=== PATIENT | female | born 1965 | race Hispanic/Latino ===

== ENCOUNTER 2017-04-20 09:35 | Outpatient (CLI) | payer OTHER ==
--- NOTE | 2017-04-20 10:40 | XRay Report ---
AP AND LATERAL LUMBOSACRAL SPINE: History: Back pain Normal bone mineralization. There is moderate disc space narrowing with anterior spurring near the thoracolumbar junction. There is moderate to severe hypertrophic facet arthropathy at L3-4, L4-5 and L5-S1. Grade one anterolisthesis of L4 with respect to L5 measures 3-4 mm. No evidence for fracture or bone lesion. IMPRESSION: Lumbar spondylosis as described.
--- NOTE | 2017-04-20 10:41 | XRay Report ---
BILATERAL KNEES, 2 VIEWS History: Bilateral knee pain. Findings: Normal bone mineralization. Moderate osteoarthritic changes are identified in the medial compartments and patellofemoral spaces of both knees. No fracture, bone lesion or osteochondral defect is identified. Small bilateral joint effusions. Impression: Osteoarthritis. Small knee effusions. No acute process noted.
== END 2017-04-20 09:36 | disposition home or self-care (01) ==
LOC: XRAY 09:35
PROVIDERS: ATTEND Internal Medicine
DX: M17.0 Bilateral primary osteoarthritis of knee (principal); M47.896 Other spondylosis, lumbar region; M25.461 Effusion, right knee; M25.462 Effusion, left knee; M12.88 Other specific arthropathies, not elsewhere classified, other specified site; G56.00 Carpal tunnel syndrome, unspecified upper limb; J45.909 Unspecified asthma, uncomplicated; G62.9 Polyneuropathy, unspecified; J44.9 Chronic obstructive pulmonary disease, unspecified
CPT/HCPCS: 72100

== ENCOUNTER 2017-09-27 20:31 | Emergency (ER) | payer MEDICAID, OTHER ==
[2017-09-27] MEDS ORDERED: DUONEB *Not for PRN Use IH ONE (21:21)
[2017-09-28] MEDS ORDERED: DUONEB *Not for PRN Use IH ONE (03:40)
[2017-09-28] MEDS ORDERED: DELTASONE PO ONE (03:40)
--- NOTE | 2017-09-28 03:40 | Emergency Department Report ---
ED Asthma HPI - General Chief Complaint: Adult Asthma Stated Complaint: RANDY Time Seen by Provider: 09/28/17 03:26 Source: patient Mode of arrival: Ambulatory Limitations: No Limitations - History of Present Illness Initial Comments: Patient reports that she is out of her asthma inhaler and she is having cough, worse this slightly thin. She says she needs a refill. Denies any nausea or vomiting. Denies any fever or chills. Denies any chest pain or shortness of breath. Pain is 0-10. No medication taken prior to coming to the emergency room because she said she is out of her inhaler. She says she started with runny nose and nasal congestion about a week ago and it turned into asthma. MD Complaint: "asthma attack", wheezing Onset/Timin -: week(s) Asthma History: adult onset, history of prior ED visit Context: recent URI, ran out of meds Associated Symptoms: dry cough, other (hoarseness). denies: productive cough, fever, chest pain, hemoptysis, leg edema, syncope Treatments Prior to Arrival: other (none) - Related Data Current Asthma Therapy: inhaled bronchodilator Home Medications Medication Instructions Recorded Confirmed Last Taken Fluticasone Propionate [Flovent 1 puff IH BID 04/30/13 04/30/13 04/30/13 Diskus] Meloxicam [Mobic] 15 mg PO QDAY 04/30/13 05/01/13 04/30/13 08:00 Previous Rx's Medication Instructions Recorded Last Taken Type Albuterol *Only Ed* [Proventil 2.5 mg IH Q3H PRN #60 nebu 05/03/13 Unknown Rx 0.5% NEBS] Ipratropium/Albuterol Sulfate 1 ampul IH Q6HRT #60 ampul.neb 05/03/13 Unknown Rx [DUONEB *Not for PRN Use*] oxyCODONE /ACETAMINOPHEN [Percocet 1 tab PO Q6H PRN #30 tablet 05/03/13 Unknown Rx 5/325 mg] ALBUTEROL Inhaler [ProAir HFA 2 puff INHALATION Q6H PRN #1 inha 09/28/17 Unknown Rx Inhaler] ALBUTEROL NEB's [Proventil 0.083% 3 ml INHALATION Q6H PRN #1 pack 06/06/18 Unknown Rx NEBS] Azithromycin [Zithromax Z-KLEVER] 250 mg PO DAILY 5 Days #6 tab 09/28/17 Unknown Rx Cetirizine HCl [ZyrTEC] 10 mg PO QDAY 14 Days #14 capsule 09/28/17 Unknown Rx Fluticasone [Flonase] 1 spray NS QDAY 14 Days #1 bottle 09/28/17 Unknown Rx Allergies Allergy/AdvReac Type Severity Reaction Status Date / Time No Known Allergies Allergy Unverified 04/30/13 15:25 ED Review of Systems ROS: Stated complaint: RANDY Other details as noted in HPI Constitutional: denies: chills, fever Eyes: denies: eye pain, eye discharge, vision change ENT: congestion, other (hoarseness due to drainage). denies: ear pain, throat pain Respiratory: cough. denies: shortness of breath, SOB with exertion, SOB at rest , stridor, wheezing Cardiovascular: denies: chest pain, palpitations, edema, syncope Gastrointestinal: denies: abdominal pain, nausea, vomiting Musculoskeletal: denies: back pain, joint swelling, arthralgia, myalgia Skin: denies: rash, lesions Neurological: denies: headache, weakness, paresthesias, abnormal gait, vertigo ED Past Medical Hx - Past Medical History Previous Medical History?: Yes Hx Congestive Heart Failure: No Hx Diabetes: No Hx Arthritis: Yes Hx Asthma: Yes Hx COPD: No Additional medical history: neuropathy,carpal tunnel, chronic back pain - Surgical History Past Surgical History?: Yes Additional Surgical History: carpal tunnel - Family History Family history: hypertension - Social History Smoking Status: Current Every Day Smoker Substance Use Type: None - Medications Home Medications: Home Medications Medication Instructions Recorded Confirmed Last Taken Type Fluticasone Propionate [Flovent 1 puff IH BID 04/30/13 04/30/13 04/30/13 History Diskus] Meloxicam [Mobic] 15 mg PO QDAY 04/30/13 05/01/13 04/30/13 08:00 History Albuterol *Only Ed* [Proventil 2.5 mg IH Q3H PRN #60 nebu 05/03/13 Unknown Rx 0.5% NEBS] Ipratropium/Albuterol Sulfate 1 ampul IH Q6HRT #60 ampul.neb 05/03/13 Unknown Rx [DUONEB *Not for PRN Use*] oxyCODONE /ACETAMINOPHEN [Percocet 1 tab PO Q6H PRN #30 tablet 05/03/13 Unknown Rx 5/325 mg] ALBUTEROL Inhaler [ProAir HFA 2 puff INHALATION Q6H PRN #1 inha 09/28/17 Unknown Rx Inhaler] ALBUTEROL NEB's [Proventil 0.083% 3 ml INHALATION Q6H PRN #1 pack 09/28/17 Unknown Rx NEBS] Azithromycin [Zithromax Z-KLEVER] 250 mg PO DAILY 5 Days #6 tab 09/28/17 Unknown Rx Cetirizine HCl [ZyrTEC] 10 mg PO QDAY 14 Days #14 capsule 09/28/17 Unknown Rx Fluticasone [Flonase] 1 spray NS QDAY 14 Days #1 bottle 09/28/17 Unknown Rx ED Physical Exam - General Limitations: No Limitations General appearance: alert, in no apparent distress - Head Head exam: Present: atraumatic, normocephalic, normal inspection - Eye Eye exam: Present: normal appearance, PERRL, EOMI Pupils: Present: normal accommodation - ENT ENT exam: Present: normal exam, normal orophraynx, mucous membranes moist, normal external ear exam, other (lateral nasal mucosa pale and boggy). Absent: TM's normal bilaterally (bilateral TM congested without erythema) - Neck Neck exam: Present: normal inspection, full ROM, other (no C-spine tenderness). Absent: tenderness, meningismus, lymphadenopathy - Respiratory Respiratory exam: Present: wheezes, other (dry cough). Absent: normal lung sounds bilaterally, respiratory distress, rales, rhonchi, stridor, chest wall tenderness, accessory muscle use, decreased breath sounds, prolonged expiratory - Cardiovascular Cardiovascular Exam: Present: regular rate, normal rhythm, normal heart sounds. Absent: systolic murmur, diastolic murmur - GI/Abdominal GI/Abdominal exam: Present: soft, normal bowel sounds. Absent: tenderness - Extremities Exam Extremities exam: Present: normal inspection, full ROM, normal capillary refill , other (no clubbing, cyanosis or edema. +2 pulses all extremities and no neurovascular compromise). Absent: tenderness, pedal edema, joint swelling, calf tenderness - Back Exam Back exam: Present: normal inspection, full ROM. Absent: tenderness, CVA tenderness (L) - Neurological Exam Neurological exam: Present: alert, oriented X3, normal gait, reflexes normal. Absent: motor sensory deficit - Psychiatric Psychiatric exam: Present: normal affect, normal mood - Skin Skin exam: Present: warm, dry, intact, normal color. Absent: rash ED Course Vital Signs 09/27/17 09/27/17 09/27/17 21:16 21:20 21:31 Temperature 98.4 F Pulse Rate 74 Pulse Rate [ 66 70 Anterior Bilateral Throughout] Respiratory 18 Rate Respiratory 24 20 Rate [Anterior Bilateral Throughout] Blood Pressure 167/107 Blood Pressure [Right] O2 Sat by Pulse 98 Oximetry 09/28/17 09/28/17 03:55 04:32 Temperature 97.6 F 97.7 F Pulse Rate 57 L 56 L Pulse Rate [ Anterior Bilateral Throughout] Respiratory 18 18 Rate Respiratory Rate [Anterior Bilateral Throughout] Blood Pressure Blood Pressure 167/97 156/73 [Right] O2 Sat by Pulse 99 100 Oximetry - Reevaluation(s) Reevaluation #1: 09/28/17 03:41 Patient received 1 amp nebulizer in triage area and still with some wheezing and cough and so she'll receive an additional DuoNeb with 60 mg of prednisone and we will reevaluate. Also recheck blood pressure as its elevated Reevaluation #2: 09/28/17 05:11 Patient was given additional DuoNeb 1 treatment along with the physical 60 mg by mouth and upon reevaluation her lung sounds are clear and she says she is feeling much better. ED Medical Decision Making - Medical Decision Making ED course: This is a 52-year-old female here for asthma exacerbation which she said started off as upper respiratory now he is wheezing and coughing. He said he ran out of his medication and here to see if he can get refill. Patient was seen by myself and examined and he is stable after nebulizer treatments and steroid. Patient states that she is feeling better. I discussed diagnosis and treatment plan the patient and she voiced understanding. A/P 1: Acute exacerbation of asthma, mild-nebulizer treatment in emergency room to include DuoNeb 2 and prednisone 60 mg by mouth and will discharge home and prednisone and refill his albuterol inhaler and nebulizer and will discharge with Z-Klever since she's been having symptoms for over a week. 2: Upper respiratory with cough and congestion-sent home in Zyrtec and Flonase. Patient given prescription for Z-Klever, Zyrtec, Flonase, prednisone Dosepak and albuterol. Pt educated on diagnosis, medication, need to follow-up, and since she does have a primary care physician who is Dr. Chen management of chronic asthma and follow-up status post asthma exacerbation Patient discharged home in stable condition to follow-up with primary care as referred. Her vital signs are stable she is afebrile. She said he is feeling much better. I discussed with her to return to the emergency room if his symptoms turns and/or worsens Critical care attestation.: If time is entered above; I have spent that time in minutes in the direct care of this critically ill patient, excluding procedure time. ED Disposition Clinical Impression: Upper respiratory infection with cough and congestion Asthma attack Qualifiers: Asthma severity: mild Asthma persistence: persistent Qualified Code(s): J45.31 - Mild persistent asthma with (acute) exacerbation Disposition: TO HOME OR SELFCARE Is pt being admited?: No Does the pt Need Aspirin: No Condition: Stable Instructions: Asthma (ED), Upper Respiratory Infection (ED), Acute Cough (ED) Additional Instructions: Please increase your fluid intake Flush nostrils with saline nasal spray take antibiotic as prescribed Take albuterol nebulizer every 6 hours 2 days and then as needed. Take Zyrtec and Flonase for allergic rhinitis, upper respiratory tract infection will cough and congestion F/U with primary care physician as instructed Prescriptions: ALBUTEROL Inhaler [ProAir HFA Inhaler] 2 puff INHALATION Q6H PRN #1 inha PRN Reason: Shortness Of Breath ALBUTEROL NEB's [Proventil 0.083% NEBS] 3 ml INHALATION Q6H PRN #1 pack PRN Reason: wheezing and cough Azithromycin [Zithromax Z-KLEVER] 250 mg PO DAILY 5 Days #6 tab Cetirizine HCl [ZyrTEC] 10 mg PO QDAY 14 Days #14 capsule Fluticasone [Flonase] 1 spray NS QDAY 14 Days #1 bottle Referrals: KY CHEN MD [Staff Physician] - 09/29/17 VAIBHAV ALANIS MD [Staff Physician] - 09/30/17 Forms: Work/School Release Form(ED)
[2017-09-28 04:33] VITALS: BP 156/73
== END 2017-09-28 05:20 | disposition home or self-care (01) ==
LOC: ED 20:31
DX: J45.31 Mild persistent asthma with (acute) exacerbation (principal); J06.9 Acute upper respiratory infection, unspecified; I10 Essential (primary) hypertension; F17.200 Nicotine dependence, unspecified, uncomplicated; M19.90 Unspecified osteoarthritis, unspecified site; G89.29 Other chronic pain; G62.9 Polyneuropathy, unspecified; Z79.899 Other long term (current) drug therapy
CPT/HCPCS: 94640; 99283; J7512

== ENCOUNTER 2020-01-17 09:38 | Emergency (ER) | payer MEDICAID, OTHER ==
[2020-01-17 09:58] VITALS: BP 178/98
--- NOTE | 2020-01-17 10:49 | Emergency Department Report ---
ED General Adult HPI - General Chief complaint: Adult Asthma Stated complaint: ASTHMA AND ALLERGIES Time Seen by Provider: 01/17/20 10:13 Source: patient Mode of arrival: Ambulatory Limitations: No Limitations - History of Present Illness Initial comments: Is a pleasant 34-year-old female presents the emergency department with chief complaint of cough and tightness in her chest. Patient has a past medical history of asthma and reports she is out of her nebulizer and inhalers. She states this happens every year this time of year. She reports symptoms started 2 days ago and she had been sleeping with her windows open is concerned maybe the change in the weather may have caused her symptoms again. She denies any associated fever, chills, night sweats, headache, dizziness, blurry vision, nausea,, diarrhea, chest pain, shortness of breath. She denies any sick contacts or known exposures to anyone with COVID-19. She does report she smokes tobacco daily. - Related Data Home Medications Medication Instructions Recorded Confirmed Last Taken Fluticasone Propionate [Flovent 1 puff IH BID 04/30/13 04/30/13 04/30/13 Diskus] Meloxicam [Mobic] 15 mg PO QDAY 04/30/13 05/01/13 04/30/13 08:00 Previous Rx's Medication Instructions Recorded Last Taken Type Albuterol *Only Ed* [Proventil 2.5 mg IH Q3H PRN #60 nebu 05/03/13 Unknown Rx 0.5% NEBS] oxyCODONE /ACETAMINOPHEN [Percocet 1 tab PO Q6H PRN #30 tablet 05/03/13 Unknown Rx 5/325 mg] ALBUTEROL NEB's [Proventil 0.083% 3 ml INHALATION Q6H PRN #1 pack 09/28/17 Unknown Rx NEBS] Fluticasone [Flonase] 1 spray NS QDAY 14 Days #1 bottle 09/28/17 Unknown Rx Albuterol Mdi (or & Nicu Only) 2 puff INHALATION Q6H PRN #1 inha 01/17/20 Unknown Rx [ProAir HFA Inhaler] Azithromycin [Zithromax Z-MIKE] 250 mg PO DAILY 5 Days #6 tab 01/17/20 Unknown Rx Cetirizine HCl [ZyrTEC 10mg cap] 10 mg PO QDAY 14 Days #14 capsule 01/17/20 Unknown Rx Ipratropium/Albuterol Sulfate 1 ampul IH Q6HRT #60 ampul.neb 01/17/20 Unknown Rx [DUONEB *Not for PRN Use*] Allergies Allergy/AdvReac Type Severity Reaction Status Date / Time No Known Allergies Allergy Unverified 04/30/13 15:25 ED Review of Systems ROS: Stated complaint: ASTHMA AND ALLERGIES Other details as noted in HPI Comment: All other systems reviewed and negative Constitutional: denies: chills, fever Eyes: denies: eye pain, eye discharge, vision change ENT: denies: ear pain, throat pain Respiratory: no symptoms reported, cough, wheezing. denies: shortness of breath Cardiovascular: denies: chest pain, palpitations Endocrine: no symptoms reported Gastrointestinal: denies: abdominal pain, nausea, diarrhea Genitourinary: denies: urgency, dysuria, discharge Musculoskeletal: denies: back pain, joint swelling, arthralgia Skin: denies: rash, lesions Neurological: denies: headache, weakness, paresthesias Psychiatric: denies: anxiety, depression Hematological/Lymphatic: denies: easy bleeding, easy bruising ED Past Medical Hx - Past Medical History Previous Medical History?: Yes Hx Congestive Heart Failure: No Hx Diabetes: No Hx Arthritis: Yes Hx Asthma: Yes Hx COPD: No Additional medical history: neuropathy,carpal tunnel, chronic back pain - Surgical History Past Surgical History?: Yes Additional Surgical History: carpal tunnel - Social History Smoking Status: Current Every Day Smoker - Medications Home Medications: Home Medications Medication Instructions Recorded Confirmed Last Taken Type Fluticasone Propionate [Flovent 1 puff IH BID 04/30/13 04/30/13 04/30/13 History Diskus] Meloxicam [Mobic] 15 mg PO QDAY 04/30/13 05/01/13 04/30/13 08:00 History Albuterol *Only Ed* [Proventil 2.5 mg IH Q3H PRN #60 nebu 05/03/13 Unknown Rx 0.5% NEBS] oxyCODONE /ACETAMINOPHEN [Percocet 1 tab PO Q6H PRN #30 tablet 05/03/13 Unknown Rx 5/325 mg] ALBUTEROL NEB's [Proventil 0.083% 3 ml INHALATION Q6H PRN #1 pack 09/28/17 Unknown Rx NEBS] Fluticasone [Flonase] 1 spray NS QDAY 14 Days #1 bottle 09/28/17 Unknown Rx Albuterol Mdi (or & Nicu Only) 2 puff INHALATION Q6H PRN #1 inha 01/17/20 Unkn own Rx [ProAir HFA Inhaler] Azithromycin [Zithromax Z-MIKE] 250 mg PO DAILY 5 Days #6 tab 01/17/20 Unknown Rx Cetirizine HCl [ZyrTEC 10mg cap] 10 mg PO QDAY 14 Days #14 capsule 01/17/20 Unk nown Rx Ipratropium/Albuterol Sulfate 1 ampul IH Q6HRT #60 ampul.neb 01/17/20 Unknown Rx [DUONEB *Not for PRN Use*] ED Physical Exam - General Limitations: No Limitations General appearance: alert, in no apparent distress - Head Head exam: Present: atraumatic, normocephalic - Eye Eye exam: Present: normal appearance, PERRL, EOMI Pupils: Present: normal accommodation - ENT ENT exam: Present: normal exam, normal orophraynx, mucous membranes moist - Neck Neck exam: Present: normal inspection, full ROM. Absent: tenderness, meningismus - Respiratory Respiratory exam: Present: normal lung sounds bilaterally. Absent: respiratory distress, wheezes, rales, rhonchi, stridor - Cardiovascular Cardiovascular Exam: Present: regular rate, normal rhythm. Absent: systolic murmur, diastolic murmur, rubs, gallop - GI/Abdominal GI/Abdominal exam: Present: soft, normal bowel sounds. Absent: distended, tenderness, guarding, rebound, rigid - Extremities Exam Extremities exam: Present: normal inspection, full ROM, normal capillary refill. Absent: tenderness, calf tenderness - Back Exam Back exam: Present: normal inspection, full ROM. Absent: tenderness, CVA tenderness (R), CVA tenderness (L) - Neurological Exam Neurological exam: Present: alert, oriented X3 - Psychiatric Psychiatric exam: Present: normal affect, normal mood - Skin Skin exam: Present: warm, dry, intact, normal color. Absent: rash ED Course Vital Signs 01/17/20 09:50 Temperature 98.5 F Pulse Rate 79 Respiratory 20 Rate Blood Pressure 178/98 O2 Sat by Pulse 96 Oximetry ED Medical Decision Making - Medical Decision Making Patient is nontoxic in no acute distress. Vital signs are stable. She was not hypoxic, had no wheezing or abnormal lung sounds, and had no increased work of breathing. I did initially order a chest x-ray however the patient politely declined states she does want a refill of her medications. I did educate her that she should return the [facility] meal if she develops any change or worsening symptoms. She verbalized understanding of the diagnosis, treatment plan and follow-up instructions will follow-up with her primary care doctor. - Differential Diagnosis copd, asthma, URI, pneumonia Critical care attestation.: If time is entered above; I have spent that time in minutes in the direct care of this critically ill patient, excluding procedure time. ED Disposition Clinical Impression: COPD (chronic obstructive pulmonary disease) Qualifiers: COPD type: COPD with acute exacerbation Qualified Code(s): J44.1 - Chronic obstructive pulmonary disease with (acute) exacerbation Disposition: DC-01 TO HOME OR SELFCARE Is pt being admited?: No Condition: Stable Instructions: Chronic Obstructive Pulmonary Disease (ED) Prescriptions: Ipratropium/Albuterol Sulfate [DUONEB *Not for PRN Use*] 1 ampul IH Q6HRT #60 ampul.neb Albuterol Mdi (or & Nicu Only) [ProAir HFA Inhaler] 2 puff INHALATION Q6H PRN #1 inha PRN Reason: Shortness Of Breath Azithromycin [Zithromax Z-MIKE] 250 mg PO DAILY 5 Days #6 tab Cetirizine HCl [ZyrTEC 10mg cap] 10 mg PO QDAY 14 Days #14 capsule Referrals: [facility] [Provider Group] - 3-5 Days Time of Disposition: 10:49
== END 2020-01-17 10:46 | disposition home or self-care (01) ==
LOC: ED 09:38
DX: J44.9 Chronic obstructive pulmonary disease, unspecified (principal); F17.200 Nicotine dependence, unspecified, uncomplicated; M19.90 Unspecified osteoarthritis, unspecified site; Z79.899 Other long term (current) drug therapy
CPT/HCPCS: 99282

== ENCOUNTER 2020-08-10 17:51 | Emergency (ER) | payer MEDICAID ==
[2020-08-10 17:56] VITALS: BP 112/61
--- NOTE | 2020-08-10 18:39 | Emergency Department Report ---
ED Back Pain/Injury HPI - General Chief Complaint: Back Pain/Injury Stated Complaint: MUSCLE SPASMS IN BACK Time Seen by Provider: 08/10/20 18:19 Source: patient Limitations: No Limitations - History of Present Illness Initial Comments: 55-year-old female with a past medical history of hypertension, hyperlipidemia, asthma, asthma and obesity presents to the ER today with complaints of right lower back pain. Patient states that it feels like she is having spasms in her right lower back. She states that it started gradually about 3 days ago, it was initially intermittent but has become more constant. She states that the pain is worse with movement. She denies any radiation of the pain down into her leg. She denies any associated bowel or bladder incontinence. She denies any saddle anesthesia. She denies any urinary retention or constipation. She reports her typical chronic lower extremity neuropathy but nothing worse since her back pain. She denies any associated abdominal pain or chest pain. She states that she been taking Tylenol and naproxen without relief. She states that she has had lower back pain in the past, but she has never officially been seen by a provider or insurance customer service specialist to figure out what is been going on with her back. MD Complaint: back pain -: Gradual, days(s) (3) - Related Data Home Medications Medication Instructions Recorded Confirmed Last Taken Fluticasone Propionate [Flovent 1 puff IH BID 04/30/13 04/30/13 04/30/13 Diskus] Meloxicam [Mobic] 15 mg PO QDAY 04/30/13 05/01/13 04/30/13 08:00 Previous Rx's Medication Instructions Recorded Last Taken Type Albuterol *Only Ed* [Proventil 2.5 mg IH Q3H PRN #60 nebu 05/03/13 Unknown Rx 0.5% NEBS] ALBUTEROL NEB's [Proventil 0.083% 3 ml INHALATION Q6H PRN #1 pack 09/28/17 Unknown Rx NEBS] Albuterol Mdi (or & Nicu Only) 2 puff INHALATION Q6H PRN #1 inha 01/17/20 Unknown Rx [ProAir HFA Inhaler] Azithromycin [Zithromax Z-MIKE] 250 mg PO DAILY 5 Days #6 tab 01/17/20 Unknown Rx Ipratropium/Albuterol Sulfate 1 ampul IH Q6HRT #60 ampul.neb 01/17/20 Unknown Rx [DUONEB *Not for PRN Use*] Ketorolac [Toradol] 10 mg PO Q6H PRN #20 tablet 08/10/20 Unknown Rx Lidocaine [Lidoderm] 1 each TP Q12HR #10 adh..patch 08/10/20 Unknown Rx methOCARBAMOL [Robaxin TAB] 750 mg PO Q8H PRN #30 tablet 08/10/20 Unknown Rx Allergies Allergy/AdvReac Type Severity Reaction Status Date / Time No Known Allergies Allergy Verified 08/10/20 17:56 ED Review of Systems ROS: Stated complaint: MUSCLE SPASMS IN BACK Other details as noted in HPI Comment: All other systems reviewed and negative Constitutional: denies: chills, fever Eyes: denies: eye pain, eye discharge, vision change ENT: denies: ear pain, throat pain Cardiovascular: denies: chest pain, palpitations, dyspnea on exertion, edema, syncope, paroxysmal nocturnal dyspnea Endocrine: no symptoms reported Gastrointestinal: denies: abdominal pain, nausea, diarrhea, constipation, hematemesis, melena, hematochezia Genitourinary: denies: urgency, dysuria, frequency, hematuria, discharge, abnormal menses, dyspareunia Musculoskeletal: back pain. denies: joint swelling, arthralgia, myalgia, other Skin: denies: rash, lesions, change in color, change in hair/nails, pruritus Neurological: denies: headache, weakness, confusion, abnormal gait, vertigo Psychiatric: denies: anxiety, depression, auditory hallucinations, visual hallucinations, homicidal thoughts Hematological/Lymphatic: denies: easy bleeding, easy bruising ED Past Medical Hx - Past Medical History Hx Congestive Heart Failure: No Hx Diabetes: No Hx Arthritis: Yes Hx Asthma: Yes Hx COPD: No Additional medical history: neuropathy,carpal tunnel, chronic back pain - Surgical History Additional Surgical History: carpal tunnel - Social History Smoking Status: Current Every Day Smoker Substance Use Type: None - Medications Home Medications: Home Medications Medication Instructions Recorded Confirmed Last Taken Type Fluticasone Propionate [Flovent 1 puff IH BID 04/30/13 04/30/13 04/30/13 History Diskus] Meloxicam [Mobic] 15 mg PO QDAY 04/30/13 05/01/13 04/30/13 08:00 History Albuterol *Only Ed* [Proventil 2.5 mg IH Q3H PRN #60 nebu 05/03/13 Unknown Rx 0.5% NEBS] ALBUTEROL NEB's [Proventil 0.083% 3 ml INHALATION Q6H PRN #1 pack 09/28/17 Unknown Rx NEBS] Albuterol Mdi (or & Nicu Only) 2 puff INHALATION Q6H PRN #1 inha 01/17/20 Unknown Rx [ProAir HFA Inhaler] Azithromycin [Zithromax Z-MIKE] 250 mg PO DAILY 5 Days #6 tab 01/17/20 Unknown Rx Ipratropium/Albuterol Sulfate 1 ampul IH Q6HRT #60 ampul.neb 01/17/20 Unknown Rx [DUONEB *Not for PRN Use*] Ketorolac [Toradol] 10 mg PO Q6H PRN #20 tablet 08/10/20 Unknown Rx Lidocaine [Lidoderm] 1 each TP Q12HR #10 adh..patch 08/10/20 Unknown Rx methOCARBAMOL [Robaxin TAB] 750 mg PO Q8H PRN #30 tablet 08/10/20 Unknown Rx ED Physical Exam - General Limitations: No Limitations General appearance: alert, in no apparent distress, obese - Head Head exam: Present: atraumatic, normocephalic, normal inspection - Neck Neck exam: Present: normal inspection, full ROM - Respiratory Respiratory exam: Present: normal lung sounds bilaterally. Absent: respiratory distress - Cardiovascular Cardiovascular Exam: Present: regular rate, normal rhythm, normal heart sounds - GI/Abdominal GI/Abdominal exam: Present: soft. Absent: distended, tenderness, guarding, rebound - Extremities Exam Extremities exam: Present: normal inspection, full ROM, normal capillary refill. Absent: pedal edema, calf tenderness - Back Exam Back exam: Present: full ROM, paraspinal tenderness (right lower lumbar area). Absent: normal inspection, CVA tenderness (R), CVA tenderness (L), vertebral tenderness, rash noted - Neurological Exam Neurological exam: Present: alert, oriented X3, CN II-XII intact, normal gait - Psychiatric Psychiatric exam: Present: normal affect, normal mood - Skin Skin exam: Present: intact ED Course Vital Signs 08/10/20 17:53 Temperature 98.5 F Pulse Rate 95 H Respiratory 20 Rate Blood Pressure 112/61 O2 Sat by Pulse 98 Oximetry ED Medical Decision Making - Medical Decision Making The patient presented with acute back pain. The patient is resting comfortably and is alert, talkative, interactive and in no distress. The patient is neurologically intact and is ambulatory in the ED. the patient has no fever, no bowel or bladder incontinence, no saddle anesthesia and is otherwise alert and well-appearing. Her history, physical examination and diagnostic testing does not suggest the presence of acute spinal epidural abscess, acute epidural bleed, cauda equina syndrome, abdominal/thoracic aortic aneurysm, aortic dissection or other acute process requiring further testing, treatment or consultation in the emergency department. Her vital signs have been stable. The patient condition is stable and appropriate for discharge. The patient will pursue further outpatient evaluation with the primary care physician or other designated or consulting physician as indicated in the discharge instructions. Critical care attestation.: If time is entered above; I have spent that time in minutes in the direct care of this critically ill patient, excluding procedure time. ED Disposition Clinical Impression: Lumbar paraspinal muscle spasm Disposition: DC- TO HOME OR SELFCARE Is pt being admited?: No Does the pt Need Aspirin: No Condition: Stable Instructions: Muscle Cramps and Spasms, Acute Back Pain, Adult Additional Instructions: Take the Robaxin, Toradol and use the Lidoderm patches as prescribed. Recommend that you follow-up with insurance customer service specialist in 1 week if your symptoms persist. Return to the ER if your symptoms worsens or changes in any way. Prescriptions: Lidocaine [Lidoderm] 1 each TP Q12HR #10 adh..patch methOCARBAMOL [Robaxin TAB] 750 mg PO Q8H PRN #30 tablet PRN Reason: Spasms Ketorolac [Toradol] 10 mg PO Q6H PRN #20 tablet PRN Reason: Pain Referrals: [facility] [Other] - 3-5 Days Time of Disposition: 18:40
== END 2020-08-10 18:45 | disposition home or self-care (01) ==
LOC: ED 17:51
DX: M62.830 Muscle spasm of back (principal); M19.91 Primary osteoarthritis, unspecified site; J45.909 Unspecified asthma, uncomplicated; F17.200 Nicotine dependence, unspecified, uncomplicated; Z98.890 Other specified postprocedural states; Z79.899 Other long term (current) drug therapy
CPT/HCPCS: 99281

== ENCOUNTER 2020-12-21 13:04 | Emergency (ER) | payer MEDICAID ==
[2020-12-21 13:40] VITALS: BP 100/61
--- NOTE | 2020-12-21 16:15 | Emergency Department Report ---
- General Chief complaint: Skin/Abscess/Foreign Body Stated complaint: BOIL/BUTTOCK Time Seen by Provider: 12/21/20 14:51 Source: patient Mode of arrival: Ambulatory Limitations: No Limitations - History of Present Illness Initial comments: Is a 55-year-old female with past medical history of asthma who presents the emergency department chief complaint of a abscess on her right buttocks. She reports this was about a quarter size 2 days ago and now has become significantly larger and more painful. She has been trying to do home remedies with no relief in her symptoms. She denies any injuries. She denies any associated fever, chills, night sweats, headache, dizziness, blurry vision, nausea,, diarrhea, chest pain, shortness of breath, weakness or any other associated symptoms. She does report earlier in the week she started to have flulike symptoms including body aches, fever, malaise and thought she may have had a Covid but she tested negative. She reports those symptoms has resolved. She has not been on any antibiotics recently. - Related Data Home Medications Medication Instructions Recorded Confirmed Last Taken Fluticasone Propionate [Flovent 1 puff IH BID 04/30/13 04/30/13 04/30/13 Diskus] Meloxicam [Mobic] 15 mg PO QDAY 04/30/13 05/01/13 04/30/13 08:00 Previous Rx's Medication Instructions Recorded Last Taken Type Albuterol *Only Ed* [Proventil 2.5 mg IH Q3H PRN #60 nebu 05/03/13 Unknown Rx 0.5% NEBS] ALBUTEROL NEB's [Proventil 0.083% 3 ml INHALATION Q6H PRN #1 pack 09/28/17 Unknown Rx NEBS] Albuterol Mdi (or & Nicu Only) 2 puff INHALATION Q6H PRN #1 inha 01/17/20 Unknown Rx [ProAir HFA Inhaler] Azithromycin [Zithromax Z-MIKE] 250 mg PO DAILY 5 Days #6 tab 01/17/20 Unknown Rx Ipratropium/Albuterol Sulfate 1 ampul IH Q6HRT #60 ampul.neb 01/17/20 Unknown Rx [DUONEB *Not for PRN Use*] Ketorolac [Toradol] 10 mg PO Q6H PRN #20 tablet 08/10/20 Unknown Rx Lidocaine [Lidoderm] 1 each TP Q12HR #10 adh..patch 08/10/20 Unknown Rx methOCARBAMOL [Robaxin TAB] 750 mg PO Q8H PRN #30 tablet 08/10/20 Unknown Rx Acetaminophen with Codeine 1 each PO Q6HR #12 tablet 12/21/20 Unknown Rx [Acetaminophen-Codeine #4 TAB] Sulfamethoxazole/Trimethoprim 1 each PO BID #20 tablet 12/21/20 Unknown Rx [Bactrim DS TAB] cephALEXin [Keflex] 500 mg PO Q6HR #40 capsule 12/21/20 Unknown Rx Allergies Allergy/AdvReac Type Severity Reaction Status Date / Time No Known Allergies Allergy Verified 08/10/20 17:56 Abscess Boil HPI - HPI Chief Complaint: Skin/Abscess/Foreign Body Stated Complaint: BOIL/BUTTOCK Time Seen by Provider: 12/21/20 14:51 Home Medications: Home Medications Medication Instructions Recorded Confirmed Last Taken Fluticasone Propionate [Flovent 1 puff IH BID 04/30/13 04/30/13 04/30/13 Diskus] Meloxicam [Mobic] 15 mg PO QDAY 04/30/13 05/01/13 04/30/13 08:00 Previous Rx's Medication Instructions Recorded Last Taken Type Albuterol *Only Ed* [Proventil 2.5 mg IH Q3H PRN #60 nebu 05/03/13 Unknown Rx 0.5% NEBS] ALBUTEROL NEB's [Proventil 0.083% 3 ml INHALATION Q6H PRN #1 pack 09/28/17 Unknown Rx NEBS] Albuterol Mdi (or & Nicu Only) 2 puff INHALATION Q6H PRN #1 inha 01/17/20 Unknown Rx [ProAir HFA Inhaler] Azithromycin [Zithromax Z-MIKE] 250 mg PO DAILY 5 Days #6 tab 01/17/20 Unknown Rx Ipratropium/Albuterol Sulfate 1 ampul IH Q6HRT #60 ampul.neb 01/17/20 Unknown Rx [DUONEB *Not for PRN Use*] Ketorolac [Toradol] 10 mg PO Q6H PRN #20 tablet 08/10/20 Unknown Rx Lidocaine [Lidoderm] 1 each TP Q12HR #10 adh..patch 08/10/20 Unknown Rx methOCARBAMOL [Robaxin TAB] 750 mg PO Q8H PRN #30 tablet 08/10/20 Unknown Rx Acetaminophen with Codeine 1 each PO Q6HR #12 tablet 12/21/20 Unknown Rx [Acetaminophen-Codeine #4 TAB] Sulfamethoxazole/Trimethoprim 1 each PO BID #20 tablet 12/21/20 Unknown Rx [Bactrim DS TAB] cephALEXin [Keflex] 500 mg PO Q6HR #40 capsule 12/21/20 Unknown Rx Allergies/Adverse Reactions: Allergies Allergy/AdvReac Type Severity Reaction Status Date / Time No Known Allergies Allergy Verified 08/10/20 17:56 ED Review of Systems ROS: Stated complaint: BOIL/BUTTOCK Other details as noted in HPI Comment: All other systems reviewed and negative Constitutional: denies: chills, fever Eyes: denies: eye pain, eye discharge, vision change ENT: denies: ear pain, throat pain Respiratory: denies: cough, shortness of breath, wheezing Cardiovascular: denies: chest pain, palpitations Endocrine: no symptoms reported Gastrointestinal: denies: abdominal pain, nausea, diarrhea Genitourinary: denies: urgency, dysuria, discharge Musculoskeletal: denies: back pain, joint swelling, arthralgia Skin: as per HPI. denies: rash, lesions Neurological: denies: headache, weakness, paresthesias Psychiatric: denies: anxiety, depression Hematological/Lymphatic: denies: easy bleeding, easy bruising ED Past Medical Hx - Past Medical History Previous Medical History?: Yes Hx Congestive Heart Failure: No Hx Diabetes: No Hx Arthritis: Yes Hx Asthma: Yes Hx COPD: No Additional medical history: neuropathy,carpal tunnel, chronic back pain - Surgical History Past Surgical History?: Yes Additional Surgical History: carpal tunnel - Social History Smoking Status: Current Every Day Smoker Substance Use Type: Alcohol - Medications Home Medications: Home Medications Medication Instructions Recorded Confirmed Last Taken Type Fluticasone Propionate [Flovent 1 puff IH BID 04/30/13 04/30/13 04/30/13 History Diskus] Meloxicam [Mobic] 15 mg PO QDAY 04/30/13 05/01/13 04/30/13 08:00 History Albuterol *Only Ed* [Proventil 2.5 mg IH Q3H PRN #60 nebu 01/09/14 Unknown Rx 0.5% NEBS] ALBUTEROL NEB's [Proventil 0.083% 3 ml INHALATION Q6H PRN #1 pack 09/28/17 Unknown Rx NEBS] Albuterol Mdi (or & Nicu Only) 2 puff INHALATION Q6H PRN #1 inha 01/17/20 Unknown Rx [ProAir HFA Inhaler] Azithromycin [Zithromax Z-MIKE] 250 mg PO DAILY 5 Days #6 tab 01/17/20 Unknown Rx Ipratropium/Albuterol Sulfate 1 ampul IH Q6HRT #60 ampul.neb 01/17/20 Unknown Rx [DUONEB *Not for PRN Use*] Ketorolac [Toradol] 10 mg PO Q6H PRN #20 tablet 08/10/20 Unknown Rx Lidocaine [Lidoderm] 1 each TP Q12HR #10 adh..patch 08/10/20 Unknown Rx methOCARBAMOL [Robaxin TAB] 750 mg PO Q8H PRN #30 tablet 08/10/20 Unknown Rx Acetaminophen with Codeine 1 each PO Q6HR #12 tablet 12/21/20 Unknown Rx [Acetaminophen-Codeine #4 TAB] Sulfamethoxazole/Trimethoprim 1 each PO BID #20 tablet 12/21/20 Unknown Rx [Bactrim DS TAB] cephALEXin [Keflex] 500 mg PO Q6HR #40 capsule 12/21/20 Unknown Rx ED Physical Exam - General Limitations: No Limitations General appearance: alert, in no apparent distress - Head Head exam: Present: atraumatic, normocephalic - Eye Eye exam: Present: normal appearance, PERRL, EOMI Pupils: Present: normal accommodation - ENT ENT exam: Present: normal exam, normal orophraynx, mucous membranes moist - Neck Neck exam: Present: normal inspection, full ROM. Absent: tenderness, m eningismus - Respiratory Respiratory exam: Present: normal lung sounds bilaterally. Absent: respiratory distress, wheezes, rales, rhonchi, stridor - Cardiovascular Cardiovascular Exam: Present: regular rate, normal rhythm, normal heart sounds. Absent: systolic murmur, diastolic murmur, rubs, gallop - GI/Abdominal GI/Abdominal exam: Present: soft, normal bowel sounds. Absent: distended, tenderness, guarding, rebound, rigid - Rectal Rectal exam: Present: deferred, other (There is a large fluctuant area to the right buttocks measuring 6 cm with indurated skin surrounding. There is tenderness palpation. This does not appear to involve the rectum. This does track around to the bottom of the perineum. There is no crepitus.) - Extremities Exam Extremities exam: Present: normal inspection, full ROM, normal capillary refill. Absent: tenderness, calf tenderness - Back Exam Back exam: Present: normal inspection, full ROM. Absent: tenderness, CVA tenderness (R) - Neurological Exam Neurological exam: Present: alert, oriented X3 - Psychiatric Psychiatric exam: Present: normal affect, normal mood - Skin Skin exam: Present: warm, dry, intact, normal color. Absent: rash ED Course Vital Signs 12/21/20 13:33 Temperature 98 F Pulse Rate 84 Respiratory 20 Rate Blood Pressure 100/61 O2 Sat by Pulse 98 Oximetry - Reevaluation(s) Reevaluation #1: 12/21/20 16:14 Patient is overall well-appearing. Abscess is very large on the buttocks. I did drain it and a copious amount of purulent drainage was expressed. The wound was irrigated thoroughly and packed. We will treat the patient with antibiotics, pain medication and recommended frequent warm moist compresses or sitz bath's. I will give her surgery follow-up and strict return precautions for any change or worsening symptoms. I have low suspicion for necrotizing fasciitis or other acute process such as intra-abdominal abscess due to lack of exam findings. Overall the patient is well-appearing does not meet sirs or sepsis criteria and does not have any other systemic symptoms at this time. She was agreeable to this plan and understood that if she develops any systemic symptoms or any change or worsening symptoms she should return to the emergency department immediately. Recommended primary care follow-up and surgery follow- up in the next 1 to 2 days. 12/21/20 16:15 - I & D Right Buttocks Type of Procedure: Complex Site: Right buttocks Blade Size: 11 I & D Procedure: betadine prep, sterile drapes applied, sterile dressing applied, gauze wick placed Progress: The area was first cleaned with Betadine prep. I then injected 1% lidocaine without epinephrine in a wheal around the area of most fluctuance. I then made a 1 cm incision and a copious amount of purulent drainage was expressed. I then deloculated and irrigated the wound and the wound was packed with 1 inch iodoform packing. Patient tolerated the procedure well. Less than 5 mL of blood loss ED Medical Decision Making - Medical Decision Making She felt much better after drainage. Educated the patient that if she were to develop any change or worsening symptoms she need to return to the emerge department immediately. She verbalized understand these instructions. I will treat her with Bactrim, Keflex, pain medication and strict return precautions. All of her questions were answered and she was agreeable this plan. - Differential Diagnosis Abscess, cellulitis, insect bite Critical care attestation.: If time is entered above; I have spent that time in minutes in the direct care of this critically ill patient, excluding procedure time. ED Disposition Clinical Impression: Abscess of buttock, right Disposition: 01 HOME / SELF CARE / HOMELESS Is pt being admited?: No Condition: Stable Instructions: Skin Abscess, Incision and Drainage, Care After Prescriptions: Acetaminophen with Codeine [Acetaminophen-Codeine #4 TAB] 1 each PO Q6HR #12 tablet Sulfamethoxazole/Trimethoprim [Bactrim DS TAB] 1 each PO BID #20 tablet cephALEXin [Keflex] 500 mg PO Q6HR #40 capsule Referrals: PRIMARY CARE, [Primary Care Provider] - 3-5 Days TRACEY RUTH MD [Staff Physician] - 3-5 Days ZULEIMA LEYVA MD [Staff Physician] - 3-5 Days Time of Disposition: 16:17
== END 2020-12-21 16:22 | disposition home or self-care (01) ==
LOC: ED 13:04
DX: L02.31 Cutaneous abscess of buttock (principal); M19.90 Unspecified osteoarthritis, unspecified site; J45.909 Unspecified asthma, uncomplicated; G62.9 Polyneuropathy, unspecified; G56.00 Carpal tunnel syndrome, unspecified upper limb; M54.9 Dorsalgia, unspecified; Z98.890 Other specified postprocedural states; F17.200 Nicotine dependence, unspecified, uncomplicated
CPT/HCPCS: 99282

== ENCOUNTER 2021-07-21 10:16 | Outpatient (CLI) | payer MEDICAID ==
--- NOTE | 2021-07-21 12:03 | XRay Report ---
LEFT SHOULDER 3 VIEWS INDICATION: M25.512 PAIN IN LEFT SHOULDER. COMPARISON: None. IMPRESSION: No acute osseous abnormality or bone lesion. Mild osteoarthritic changes are identified at the glenohumeral joint and AC joint. The soft tissues are unremarkable. Signer Name: Sukumar Grimaldo Jr, MD Signed: 07/21/2021 11:59 AM Workstation Name: [id number]
== END 2021-07-21 10:17 | disposition home or self-care (01) ==
LOC: XRAY 10:16
PROVIDERS: ATTEND Orthopaedic Surgery
DX: M19.012 Primary osteoarthritis, left shoulder (principal)

== ENCOUNTER 2021-07-27 05:50 | Day surgery (SDC) | payer MEDICAID ==
[2021-07-27] MEDS ORDERED: LACTATED RINGERS 1,000 ML IV SCH (06:00)
[2021-07-27] MEDS ORDERED: ALBUTEROL 2.5 MG/3 ML NEBU IH NR (06:00)
[2021-07-27] MEDS ORDERED: MIDAZOLAM 2 MG/2 ML INJ IV NR (06:00)
[2021-07-27] MEDS ORDERED: NEOMY 40 MG/POLYMYXIN B 200,000 UNITS/ML (GU) AMPULE IR ONE ×2 (07:13→08:22)
[2021-07-27] MEDS ORDERED: fentaNYL 100 MCG/2 ML INJ IV PRN (07:43)
--- NOTE | 2021-07-27 07:43 | Anesthesia Consultation ---
Anesthesia Consult and Med Hx Date of service: 07/27/21 - Airway Anesthetic Teeth Evaluation: Poor (multiple missing and decaying teeth; denies loose teeth) ROM Head & Neck: Adequate Mental/Hyoid Distance: Adequate Mallampati Class: Class II Intubation Access Assessment: Probably Good - Pulmonary Exam CTA: No (mild diffuse wheezing) - Cardiac Exam Cardiac Exam: RRR - Pre-Operative Health Status ASA Pre-Surgery Classification: ASA3 Proposed Anesthetic Plan: MAC - Pulmonary Hx Smoking: Yes (previous 1/2 PPD; quit 1 wk. Smoked "1 puff" this morning) Hx Asthma: Yes (used advair at home this morning, will give albuterol neb in preop) COPD: Yes Home Oxygen Therapy: No Hx Sleep Apnea: No (ISABEL PRE SCREEN HIGH RISK) - Cardiovascular System Hx Hypertension: Yes Hx Heart Attack/AMI: No Hx Percutaneous Transluminal Coronary Angioplasty (PTCA): No - Central Nervous System CVA: No Hx Back Pain: Yes (NECK AND BACK PAIN) - Endocrine Hx Renal Disease: No Hx Liver Disease: No Hx Insulin Dependent Diabetes: No Hx Non-Insulin Dependent Diabetes: No Hx Thyroid Disease: No - Other Systems Hx Substance Use: Yes (occasional THC; remote hx meth use) Hx Cancer: No Hx Obesity: Yes (BMI 41) - Additional Comments Anesthesia Medical History Comments: No hx anesthetic complications.
--- NOTE | 2021-07-27 07:44 | Anesthesia Day of Surgery ---
Anesthesia Day of Surgery - Day of Surgery Patient Examined: Yes Patient H&P Reviewed: Yes Patient is NPO: Yes
[2021-07-27] MEDS ORDERED: MIDAZOLAM 2 MG/2 ML INJ ONE (07:52)
[2021-07-27] MEDS ORDERED: propofoL 200 MG/20 ML VIAL IV ONE (07:52)
[2021-07-27] MEDS ORDERED: LIDOCAINE MPF (2%) 20 MG/1 ML VIAL 5 ML ONE (07:52)
[2021-07-27] MEDS ORDERED: HYDROcodone/ACETAMINOPHEN 5-325 MG TAB PO PRN (08:00)
[2021-07-27] MEDS ORDERED: ceFAZolin/Water 2 GM/20 ML 2 GM/20 ML SYRINGE IV NR (08:00)
[2021-07-27] MEDS ORDERED: SODIUM CHLORIDE 0.9% IRR 1,500 ML BOTTLE IR ONE (08:22)
[2021-07-27] MEDS ORDERED: LIDOCAINE (1%) 10 MG/1 ML VIAL 20 ML MDV INFILTRATI ONE (08:22)
[2021-07-27] MEDS ORDERED: LIDOCAINE (1%) 10 MG/1 ML VIAL 20 ML MDV ONE (08:25)
--- NOTE | 2021-07-27 09:55 | Post Anesthesia Evaluation ---
- Post Anesthesia Evaluation Patient Participated: Yes Airway Patent: Yes Stable Respiratory Function: Yes Nausea/Vomiting: No Temp > 96.8F: Yes Pain Manageable: Yes Adequeate Hydration: Yes Anesthesia Complications: No
[2021-07-27 10:25] VITALS: BP 132/77
--- NOTE | 2021-07-27 16:03 | Operative Report ---
Operative Report Operative Report: Preop diagnosis : Carpal tunnel syndrome, left hand Postop diagnosis: Same Procedure: Carpal tunnel release, left hand Surgeon: Jayden Sims MD product development assistant: None Anesthesia: General with MAC Details of operative technique: Patient was prepared in same-day surgery. She was then brought to the operating room where she underwent IV sedation and MAC anesthesia. Then a wrist block was performed utilizing 8 cc of 1% lidocaine beginning on the ulnar aspect of the wrist and going down into the carpal canal. The hand was then prepped and draped in usual fashion with Hibiclens scrub and ChloraPrep solution. A straight midline incision was made paralleling the thenar crease approximately 3 cm in length. The dissection was carried down through the fibrofatty layer. Bleeders were cauterized with the microtip Bovie. The palmar fascia was then divided and retractors were placed. The distal edge of the transverse carpal ligament was identified and a small opening was created with tenotomy scissors. Following this a [place] elevator was inserted underneath the ligament and with the wrist in extension the ligament was divided from distal to proximal under direct vision. Occipital portion was released with small tenotomy scissors with maximum dorsiflexion of the wrist. The contents of the canal were then inspected. The median nerve was seen to have an hourglass indentation. There was no synovitis present. There were no anomalous masses or tendons present. The wound was then irrigated with normal saline. Skin was reapproximated utilizing 3-0 nylon sutures interrupted style. A sterile compressive dressing was applied followed by a cock up splint which was secured with an Sergio wrap. The patient was then awakened and taken to recovery room in good condition. Estimated blood loss: None Replacement: See anesthesia record Drains : None Complications: None Tourniquet time: 16 minutes
== END 2021-07-27 10:10 | disposition home or self-care (01) ==
LOC: OR 05:50
PROVIDERS: ATTEND Orthopaedic Surgery
DX: G56.02 Carpal tunnel syndrome, left upper limb (principal); J44.9 Chronic obstructive pulmonary disease, unspecified; E66.9 Obesity, unspecified; E78.00 Pure hypercholesterolemia, unspecified; I10 Essential (primary) hypertension; M19.90 Unspecified osteoarthritis, unspecified site; F17.210 Nicotine dependence, cigarettes, uncomplicated; Z20.822 Contact with and (suspected) exposure to COVID-19; Z79.899 Other long term (current) drug therapy; Z90.49 Acquired absence of other specified parts of digestive tract; Z98.51 Tubal ligation status; Z87.440 Personal history of urinary (tract) infections; Z98.890 Other specified postprocedural states; Z83.3 Family history of diabetes mellitus; Z82.61 Family history of arthritis; Z82.49 Family history of ischemic heart disease and other diseases of the circulatory system
CPT/HCPCS: 64721; J0690; J2250; J2704; J3010; J3490; J7120; U0003